=== PATIENT | male | born 1995 | race Caucasian/White ===

== ENCOUNTER 2018-04-17 22:56 | Emergency (ER) | payer BC ==
[~2018-04-17] VITALS: Ht 175.3 cm; Wt 100.0 kg
[2018-04-17 23:00] VITALS: BP 141/94; TEMP 98.5
[2018-04-18] MEDS ORDERED: PREDNISONE20 MG PO (00:33)
[2018-04-18 00:41] VITALS: PULSE 90
== END 2018-04-18 00:41 | disposition home or self-care (01) ==
LOC: COL.ER 22:56
DX: L30.9 Dermatitis, unspecified (principal); J45.909 Unspecified asthma, uncomplicated
CPT/HCPCS: J7512